=== PATIENT | male | born 1945 | race Caucasian/White ===

== ENCOUNTER 2016-09-05 06:12 | Emergency (ER) | payer MEDICARE, OTHER ==
[~2016-09-05] VITALS: Ht 177.8 cm; Wt 82.7 kg
[~2016-09-05 06:12] MED LIST: AMLO2.5T PO; ATEN-100 PO; FOLI20CA PO; HYDR-3580 PO; ISOS30TA17 PO; LEVO.15 PO; LORTA5 PO; NEXI40CA PO; NITR.4 PO; PRED5SOL PO; TIMO0.5S6 OU; XANA0.5T PO
[2016-09-05 06:13] VITALS: BP 135/71; PULSE 71; RESP 16; TEMP 98; O2SAT 98
--- NOTE | 2016-09-05 06:32 | PD ---
HPI Chief Complaint: Skin Problem Time Seen by Provider: 06:21 Travel History International Travel<30 days: No Contact w/Intl Traveler<30days: No Traveled to known affect area: No History of Present Illness HPI 71-year-old male complains of discharge from the surgical wound on the right groin. Patient status post right groin vascular surgery [address] Ramsay. Patient was seen by Dr. Ramsay 3 days ago for postop check. Patient was advised to follow with him in several weeks. Patient states that he has a large amount of fluid draining out from the surgical wound this morning. Patient denies any fever chills. 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) Coronary Artery Disease: Yes Diabetes: No Diminished Hearing: No Endocrine: Yes Gastrointestinal Disorders: Yes (BARRATTS ESOPHAGITIS) GERD: Yes Glaucoma: Yes Genitourinary: Yes Headaches: No Hepatitis: No Hiatal Hernia: Yes (REPAIRED) Hypertension: Yes Immune Disorder: No Kidney Stones: Yes Musculoskeletal: No Neurologic: Yes Psychiatric: No Reproductive: No Respiratory: No Migraines: No Myocardial Infarction: Yes (ANGIOPLASTY) Radiation Therapy: No Renal Failure: No Seizures: No Sickle Cell Disease: No Sleep Apnea: No Thyroid Disease: Yes (THYROIDECTOMY) Ulcer: No PNEUMOCCOCAL Vaccine (Year): 2009 Past Surgical History Abdominal Surgery: Yes (JENELLE FUNDLICATION; HIATAL HERNIA REPAIR) AICD: No Appendectomy: No Arteriovenous Shunt: No Cardiac Surgery: Yes (TRIPLE BYPASS 04/2008; ANGIOPLASTY) Cholecystectomy: Yes Coronary Artery Bypass Graft: Yes Ear Surgery: No Endocrine Surgery: Yes (THYROIDECTOMY) Eye Surgery: No Genitourinary Surgery: No Gynecologic Surgery: No Joint Replacement: No Oral Surgery: Yes (NODULE REMOVED FROM VOCAL CORD) Pacemaker: No Thoracic Surgery: No Other Surgery: Yes (CHOLECYSTECTOMY, 3 CAROTID ENDO, STOMACH SX) Social History Alcohol Use: Yes ("OCCASSIONALLY") Tobacco Use: No (QUIT 2005) Substance Use: No Allergies-Medications (Allergen,Severity, Reaction): Coded Allergies: Aspirin (Verified Allergy, Severe, GI UPSET, 09/05/16) HURTS HIS STOMACH WHEN HE TAKES A LOT OF ASPIRIN Benzocaine (Verified Allergy, Severe, RASH, 09/05/16) Egg Allergy (Verified Allergy, Severe, rash, 09/05/16) Lidocaine (Verified Allergy, Severe, RASH, 09/05/16) Oily Fish (Verified Allergy, Severe, Nausea/Vomiting, 09/05/16) Meloxicam (Verified Adverse Reaction, Severe, COUGH UP BLOOD GI DISTRESS, 09/05/16) Uncoded Allergies: cedar pollen (Allergy, Severe, rash, 02/26/11) Reported Meds & Prescriptions Reported Meds & Active Scripts Active Reported Tamsulosin (Tamsulosin HCl) 0.4 Mg Cap 0.4 Mg PO HS Timoptic Opth Drops (Timolol Opth Drops) 0.5 % Soln 1 Drop EACH EYE BID Synthroid (Levothyroxine Sodium) 100 Mcg Tab 100 Mcg PO DAILY Isosorbide Dinitrate 20 Mg Tab 20 Mg PO TID Nexium (Esomeprazole DR) 40 Mg Capdr 40 Mg PO DAILY Atenolol 25 Mg Tab 12.5 Mg PO BID Amlodipine-Benazepril 2.5-10 Mg Cap 1 Cap PO DAILY Valium (Diazepam) 5 Mg Tab 5 Mg PO HS PRN Review of Systems General / Constitutional: No: Fever Eyes: No: Visual changes HENT: No: Headaches Cardiovascular: No: Chest Pain or Discomfort Respiratory: No: Shortness of Breath Gastrointestinal: No: Abdominal Pain Genitourinary: No: Dysuria Musculoskeletal: No: Pain Skin: No Rash Neurologic: No: Weakness Psychiatric: No: Depression Endocrine: No: Polydipsia Hematologic/Lymphatic: No: Easy Bruising Physical Exam Narrative GENERAL: Well-nourished, well-developed patient. SKIN: Focused skin assessment warm/dry. HEAD: Normocephalic. EYES: No scleral icterus. No injection or drainage. NECK: Supple, trachea midline. No JVD or lymphadenopathy. CARDIOVASCULAR: Regular rate and rhythm without murmurs, gallops, or rubs. RESPIRATORY: Breath sounds equal bilaterally. No accessory muscle use. GASTROINTESTINAL: Abdomen soft, non-tender, nondistended. MUSCULOSKELETAL: No cyanosis, or edema. BACK: Nontender without obvious deformity. No CVA tenderness. Patient has an area of redness swelling firmness right inguinal area with a small opening at the surgical wound bilaterally. No active bleeding. Small amount of yellowish clear fluid discharge noted. No induration. The right leg is nice and warm and with good capillary refill. Data Data Last Documented VS Vital Signs Date Time Temp Pulse Resp B/P Pulse Ox O2 Delivery O2 Flow Rate FiO2 09/05/16 06:13 98.0 71 16 135/71 98 MDM Medical Decision Making Medical Screen Exam Complete: Yes Emergency Medical Condition: Yes Differential Diagnosis Differential diagnosis including seroma, cellulitis, abscess. Narrative Course 71-year-old male with drainage from surgical wound right groin area, status post right groin vascular surgery 3 weeks ago. I spoke with Dr. Ramsay. Patient will be seen in the office this afternoon by him. Diagnosis Primary Impression: Encounter for post surgical wound check Patient Instructions: General Instructions Additional Instructions: Dressing to the wound. Patient will be seen by Dr. Ramsay this afternoon in the office. Med/Other Pt SpecificInfo: No Change to Meds Disposition: 01 DISCHARGE HOME Condition: Stable Phoenix Cochran MD Sep 05, 2016 06:32
[2016-09-05] MEDS ORDERED: DIAZ5 PO (06:33)
[2016-09-05] MEDS ORDERED: NEXI40CA PO (06:35)
[2016-09-05] MEDS ORDERED: ATEN25TA PO (06:35)
[2016-09-05] MEDS ORDERED: AMLO2.5C PO (06:35)
[2016-09-05] MEDS ORDERED: LEVO.1 PO (06:37)
[2016-09-05] MEDS ORDERED: ISOS20TA2 PO (06:37)
[2016-09-05] MEDS ORDERED: TIMO0.5S5 EACH EYE (06:37)
[2016-09-05] MEDS ORDERED: TAMS0.4C4 PO (06:38)
== END 2016-09-05 06:59 | disposition home or self-care (01) ==
LOC: PHED 06:12
DX: L76.82 Other postprocedural complications of skin and subcutaneous tissue (principal); I10 Essential (primary) hypertension; E07.9 Disorder of thyroid, unspecified; E78.00 Pure hypercholesterolemia, unspecified; Z98.890 Other specified postprocedural states; Z86.79 Personal history of other diseases of the circulatory system; Z87.19 Personal history of other diseases of the digestive system; Z86.69 Personal history of other diseases of the nervous system and sense organs; Z87.448 Personal history of other diseases of urinary system
CPT/HCPCS: 99282